=== PATIENT | female | born 1985 | race Caucasian/White ===

== ENCOUNTER 2020-08-31 14:16 | Emergency (ER) | payer OTHER, SELFPAY ==
--- NOTE | 2020-08-31 | ECG_ITS ---
Test Reason : CHEST PAIN Blood Pressure : / mmHG Vent. Rate : 091 BPM Atrial Rate : 091 BPM P-R Int : 122 ms QRS Dur : 070 ms QT Int : 348 ms P-R-T Axes : 051 084 022 degrees QTc Int : 428 ms Normal sinus rhythm Normal ECG No previous ECGs available Referred By: Generic ED Physician Electronically Signed By:Rangel Lowe
--- NOTE | ~2020-08-31 | CT_ITS ---
EXAMINATION: CT ANGIOGRAM OF THE CHEST WITH AND WITHOUT CONTRAST (CT PULMONARY ANGIOGRAM FOR PE) CLINICAL INFORMATION: Reason for Exam Cp/ SOB/ elevated ddimer COMPARISON: None TECHNIQUE: Prior to contrast administration, noncontrast localization images were obtained. Subsequently, multidetector volumetric imaging was performed from the thoracic inlet to below the diaphragms following the administration of 59 mL Omnipaque 350 intravenous contrast. No contrast reaction reported Sagittal, coronal, and MIP oblique sagittal reformatted images were obtained on the CT workstation, uploaded to PACS, and reviewed. This CT examination was performed using dose optimization techniques as appropriate, variously including the following: *Automated exposure control *Adjustment of mA and/or kV according to patient size (this includes techniques or standardized protocols for targeted exams where dose is matched to indication/reason for exam; i.e. extremities or head) *Use of iterative reconstruction technique Total exam dose-length product 227 mGy-cm FINDINGS: QUALITY OF STUDY/CONTRAST BOLUS: Satisfactory. PULMONARY ARTERIES: No central or segmental pulmonary emboli. THORACIC AORTA: No aneurysm or dissection. LUNG: No focal consolidation, nodules or masses. PLEURA: No pleural effusion or pneumothorax. MEDIASTINUM: Normal heart size. No pericardial effusion. No hilar or mediastinal lymphadenopathy. No evidence of septal bowing or right heart strain. CHEST WALL/AXILLA: No axillary or internal mammary lymphadenopathy. OSSEOUS STRUCTURES: No acute or suspicious osseous abnormality. UPPER ABDOMEN: Unremarkable. No reflux of contrast into the hepatic veins to suggest elevated right heart pressures. CT/CT angio chest PE protocol IMPRESSION: No evidence of pulmonary emboli VTE: negative
--- NOTE | ~2020-08-31 | XR_ITS ---
EXAMINATION: XR CHEST CLINICAL INFORMATION: Cough, chest pain COMPARISON: None TECHNIQUE: Frontal view of the chest was obtained. FINDINGS: There is no pneumothorax, pleural reaction, airspace opacity, or effusion. The costophrenic sulci are clear. The heart is normal in size. The hilar and mediastinal contours and visualized bony structures are unremarkable. XR/XR chest 1V IMPRESSION: Unremarkable examination.
[2020-08-31 14:33] VITALS: BP 111/68; PULSE 96; RESP 18; TEMP 36.8; O2SAT 99; BMI 28.3
[2020-08-31 14:59] LABS: UPreg QC Valid YES
[2020-08-31 15:01] LABS: Urine Pregnancy NEGATIVE (NEGATIVE)
--- NOTE | 2020-08-31 17:16 | ED.CHESTPAIN ---
HPI - Chest Pain General Chief Complaint: Chest Pain Stated Complaint: chest pain sob Time Seen by Provider: 08/31/20 17:16 Source: patient Mode of arrival: ambulatory Limitations: no limitations History of Present Illness HPI narrative: In review this is a 34-year-old female who denies any significant past medical or surgical history who presents today with complaint of 3 days of cough that has been progressively getting worse with some runny nose and nasal congestion that progressed to having chest pain that is associated with cough and also tightness in the chest. States that she does not have any recent travel or sick contact. There is no headache or neck pain. She has received both of her COVID vaccinations. There is no associated abdominal pain, nausea, vomiting or diarrhea. MD complaint: chest pain Onset (ago): day(s) Timing of current episode: episodic Onset: other (With cough) Pain radiation: none Severity: moderate Quality: aching Relieving factors: rest Associated symptoms: cough Treatment prior to arrival: none Related Data Previous Rx's Medication Instructions Recorded hqnznoliskler-YF-fayifakgkia 15 ml PO Q8H PRN 3 Days #118 ml 08/31/20 [Robitussin Cough and Cold CF] Allergies Allergy/AdvReac Type Severity Reaction Status Date / Time No Known Allergies Allergy Verified 08/31/20 14:31 Review of Systems Review of Systems: Constitutional: No Weight loss, No Fever, No Chills, No Night Sweats, No Fatigue, No Malaise ENT/Mouth: No Hearing loss, No Ear Pain, + Nasal Congestion, + Sinus Pain, No Hoarseness, No sore throat, + Rhinorrhea, No Swallowing Difficulty Eyes: No Eye Pain, No Swelling, No Redness, No Foreign Body, No Discharge, No Vision Changes Cardiovascular: + Chest Pain, +SOB with cough, No Dyspnea on Exertion, No Orthopnea, No Edema, No Palpitations Respiratory: No Cough, No Sputum, No Wheezing, No Smoke Exposure, No Dyspnea Gastrointestinal: No Nausea, No Vomiting, No Diarrhea, No Constipation, No abdominal Pain, No Hematochezia, No Melena Genitourinary: no irregular bleeding, No Dysuria, No Urinary Frequency, No Hematuria, No Urinary Incontinence, No Urgency, No Flank Pain, No Urinary Flow Changes, No Hesitancy Musculoskeletal: No joint pain, No Myalgias, No Joint Swelling Skin: No Skin Lesions, No rash Neuro: No Weakness, No Numbness, No Paresthesias, No Loss of Consciousness, No Dizziness, No Headache Psych: No Social Issues Heme/Lymph: No Bruising, No Bleeding,No Lymphadenopathy Endocrine: No Polyuria, No Polydipsia, No Temperature Intolerance Yes all other systems are reviewed and are negative [facility] Social History Social History Advance Directives: No Advance Directives Information Provided: No Physical Exam Vital Signs: Vital Signs: Last Vital Signs Temp 98.3 F 08/31/20 14:33 Pulse 105 H 08/31/20 19:24 Resp 18 08/31/20 19:24 BP 107/59 L 08/31/20 19:24 Pulse Ox 99 08/31/20 19:24 Body Mass Index 28.3 Reviewed Const: General: cooperative and healthy appearing; No acute distress or intoxicated appearing Nutritional Appearance: average body habitus Orientation/consciousness: patient oriented x3 HENMT: Head: Yes normal to inspection Ears: hearing grossly normal bilaterally General nose exam: Nasal discharge present clear Face and sinus: Yes sinuses nontender Teeth and gingiva: dentition normal Throat: Yes posterior oropharynx normal Eyes: General: appearance normal, both eyes and all related structures Visual Woods: normal visual woods by confrontation Pupils: Equal, round and reactive pupils present Neck: Neck: Yes normal visual inspection, No positive Brudzinski's sign, No positive Kernig's sign and No tender Thyroid: Thyroid normal Chest: Chest palpation & inspection: normal inspection of the chest Breast/axilla inspection: normal inspection of the breasts Resp: Effort & Inspection: normal respiratory effort Auscultation: clear to auscultation bilaterally Cardio: Jugular venous distension: no JVD Rate: tachycardic (115) GI: Inspection: Yes normal to inspection Palpation (GI): Soft to palpation Percussion: Yes normal to percussion Auscultation: normal bowel sounds : General: Yes no CVA tenderness Back/Spine/Pelvis: Back: no CVA tenderness Skin: General skin exam: no rashes or lesions noted Neuro: General: patient oriented x3 Cranial nerves: Yes Equal, round and reactive pupils present Extrem: General: Yes normal to inspection Course Reevaluation(s) Reevaluation #1: 1720 In review otherwise healthy 34-year-old female presenting with URI symptoms with associated cough and chest pain going on for past 3 days now having some shortness of breath. She is noted to have temperature of 99.3 degrees and pulse ox 100% and heart rate of 116. She reports more pain the face and there is some chest pain with cough. She had chest x-ray done on arrival that was unremarkable, EKG nondiagnostic, A.P consistent with nasal pharyngitis with associated cough and pruritus though she is tachycardic otherwise her test is negative. Will check labs, troponin and D-dimer though my suspicions are low for this. Will treat with p.o. Tylenol and fluids. Will assess and re-evaluate after labs and treatment. Reevaluation #2: Labs show slightly elevated D-dimer otherwise overall stable. Given the tachycardia likely from low-grade fever and not pulmonary embolism however due to elevated D-dimer will get CTA chest to rule out PE. She otherwise overall feels better. Reevaluation #3: COVID/flu/RSV is negative CT of the chest is negative. She will be discharged home with clear precaution return follow-up instructions. She is overall nontoxic appearing. She is out of bed ambulatory status with gait. Vital stable. She feels comfortable plan. Stable for discharge. MDM - Chest Pain Medical Records Data Attestation: I reviewed the patient's medical records. Lab Data Attestation: I reviewed the patient's lab results. Result diagrams: 08/31/20 17:36 08/31/20 17:36 Labs: Lab Results 08/31/20 08/31/20 08/31/20 Range/Units 14:46 17:36 17:36 WBC 12.1 H (4.8-10.8) X10*3/uL RBC 4.30 (4.20-5.50) X10*6/uL Hgb 11.8 L (12.0-16.0) g/dl Hct 36.0 L (37-47) % MCV 83.7 (80-98) fL MCH 27.4 (27.0-33.0) pg MCHC 32.8 (31.0-35.0) g/dl RDW 13.4 (11.0-16.0) % Plt Count 266 (160-400) X10*3/uL MPV 10.2 (9.4-12.3) fL Immature Gran % (Auto) 0.2 (0.0-0.4) % Neut % (Auto) 75.7 H (45-73) % Lymph % (Auto) 15.5 L (20-40) % [place] % (Auto) 6.9 (2-11) % Eos % (Auto) 1.5 (0-4) % Baso % (Auto) 0.2 (0-2) % Lymph # (Auto) 1.9 (1.2-4.9) X10*3/uL [place] # (Auto) 0.8 (0.1-1.2) X10*3/uL Eos # (Auto) 0.2 (0.0-0.4) X10*3/uL Baso # (Auto) 0.0 (0.0-0.2) X10*3/uL Abs Immat Gran (auto) 0.03 (0.00-0.03) X10*3/uL Absolute Neuts (auto) 9.2 H (2.0-8.3) X10*3/uL Absolute Nucleated RBC 0.000 (0.0-0.012) X10*3/uL Nucleated RBC % (auto) 0.0 (0.0-0.2) /100WBC APTT 33.4 (24.1-38.0) SEC D-Dimer 326 NG/ML Sodium (135-145) mmol/L Potassium (3.3-5.1) mmol/L Chloride (96-108) mmol/L Carbon Dioxide (22-29) mmol/L Anion Gap (12-20) BUN (9-16) mg/dL Creatinine (0.5-1.4) mg/dL Estim Creat Clear Calc Estimated GFR Random Glucose (60-115) mg/dL Calcium (8.4-10.2) mg/dL Total Bilirubin (0.0-1.0) mg/dL AST (5-31) U/L ALT (0-31) U/L Alkaline Phosphatase (39-117) U/L Troponin I High Sens (<3.5-17.0) ng/L Total Protein (6.5-8.0) g/dL Albumin (3.5-5.0) g/dL Urine Color Urine Appearance Urine pH (5.0-8.0) Ur Specific [place] (1.005-1.025) Urine Protein (NEG-TRACE) MG/DL Urine Glucose (UA) (NEG) MG/DL Urine Ketones (NEG) MG/DL Urine Blood (NEG) Urine Nitrite (NEG) Ur Leukocyte Esterase (NEG) Urine RBC (0) /HPF Urine WBC (0-4) /HPF Ur Squamous Epith Cells /LPF Urine Bacteria /LPF Urine Test NEGATIVE (NEGATIVE) Coronavirus (PCR) (Negative) Influenza Type A (PCR) (Negative) Influenza Type B (PCR) (Negative) RSV RNA Qual (PCR) (Negative) 08/31/20 08/31/20 08/31/20 Range/Units 17:36 17:36 19:10 WBC (4.8-10.8) X10*3/uL RBC (4.20-5.50) X10*6/uL Hgb (12.0-16.0) g/dl Hct (37-47) % MCV (80-98) fL MCH (27.0-33.0) pg MCHC (31.0-35.0) g/dl RDW (11.0-16.0) % Plt Count (160-400) X10*3/uL MPV (9.4-12.3) fL Immature Gran % (Auto) (0.0-0.4) % Neut % (Auto) (45-73) % Lymph % (Auto) (20-40) % [place] % (Auto) (2-11) % Eos % (Auto) (0-4) % Baso % (Auto) (0-2) % Lymph # (Auto) (1.2-4.9) X10*3/uL [place] # (Auto) (0.1-1.2) X10*3/uL Eos # (Auto) (0.0-0.4) X10*3/uL Baso # (Auto) (0.0-0.2) X10*3/uL Abs Immat Gran (auto) (0.00-0.03) X10*3/uL Absolute Neuts (auto) (2.0-8.3) X10*3/uL Absolute Nucleated RBC (0.0-0.012) X10*3/uL Nucleated RBC % (auto) (0.0-0.2) /100WBC APTT (24.1-38.0) SEC D-Dimer NG/ML Sodium 139 (135-145) mmol/L Potassium 4.2 (3.3-5.1) mmol/L Chloride 106 (96-108) mmol/L Carbon Dioxide 23 (22-29) mmol/L Anion Gap 14 (12-20) BUN 9 (9-16) mg/dL Creatinine 0.78 (0.5-1.4) mg/dL Estim Creat Clear Calc 91.5 Estimated GFR > 60 Random Glucose 110 (60-115) mg/dL Calcium 8.8 (8.4-10.2) mg/dL Total Bilirubin 0.5 (0.0-1.0) mg/dL AST 13 (5-31) U/L ALT 10 (0-31) U/L Alkaline Phosphatase 72 (39-117) U/L Troponin I High Sens < 3.5 (<3.5-17.0) ng/L Total Protein 7.2 (6.5-8.0) g/dL Albumin 4.2 (3.5-5.0) g/dL Urine Color Urine Appearance Urine pH (5.0-8.0) Ur Specific [place] (1.005-1.025) Urine Protein (NEG-TRACE) MG/DL Urine Glucose (UA) (NEG) MG/DL Urine Ketones (NEG) MG/DL Urine Blood (NEG) Urine Nitrite (NEG) Ur Leukocyte Esterase (NEG) Urine RBC (0) /HPF Urine WBC (0-4) /HPF Ur Squamous Epith Cells /LPF Urine Bacteria /LPF Urine Test (NEGATIVE) Coronavirus (PCR) NEGATIVE (Negative) Influenza Type A (PCR) NEGATIVE (Negative) Influenza Type B (PCR) NEGATIVE (Negative) RSV RNA Qual (PCR) NEGATIVE (Negative) 08/31/20 Range/Units 19:23 WBC (4.8-10.8) X10*3/uL RBC (4.20-5.50) X10*6/uL Hgb (12.0-16.0) g/dl Hct (37-47) % MCV (80-98) fL MCH (27.0-33.0) pg MCHC (31.0-35.0) g/dl RDW (11.0-16.0) % Plt Count (160-400) X10*3/uL MPV (9.4-12.3) fL Immature Gran % (Auto) (0.0-0.4) % Neut % (Auto) (45-73) % Lymph % (Auto) (20-40) % [place] % (Auto) (2-11) % Eos % (Auto) (0-4) % Baso % (Auto) (0-2) % Lymph # (Auto) (1.2-4.9) X10*3/uL [place] # (Auto) (0.1-1.2) X10*3/uL Eos # (Auto) (0.0-0.4) X10*3/uL Baso # (Auto) (0.0-0.2) X10*3/uL Abs Immat Gran (auto) (0.00-0.03) X10*3/uL Absolute Neuts (auto) (2.0-8.3) X10*3/uL Absolute Nucleated RBC (0.0-0.012) X10*3/uL Nucleated RBC % (auto) (0.0-0.2) /100WBC APTT (24.1-38.0) SEC D-Dimer NG/ML Sodium (135-145) mmol/L Potassium (3.3-5.1) mmol/L Chloride (96-108) mmol/L Carbon Dioxide (22-29) mmol/L Anion Gap (12-20) BUN (9-16) mg/dL Creatinine (0.5-1.4) mg/dL Estim Creat Clear Calc Estimated GFR Random Glucose (60-115) mg/dL Calcium (8.4-10.2) mg/dL Total Bilirubin (0.0-1.0) mg/dL AST (5-31) U/L ALT (0-31) U/L Alkaline Phosphatase (39-117) U/L Troponin I High Sens (<3.5-17.0) ng/L Total Protein (6.5-8.0) g/dL Albumin (3.5-5.0) g/dL Urine Color YELLOW Urine Appearance CLEAR Urine pH 6.0 (5.0-8.0) Ur Specific [place] <= 1.005 (1.005-1.025) Urine Protein NEG (NEG-TRACE) MG/DL Urine Glucose (UA) NEG (NEG) MG/DL Urine Ketones NEG (NEG) MG/DL Urine Blood 1+ H (NEG) Urine Nitrite NEG (NEG) Ur Leukocyte Esterase NEG (NEG) Urine RBC 0-2 (0) /HPF Urine WBC 0 (0-4) /HPF Ur Squamous Epith Cells 1+ /LPF Urine Bacteria TRACE /LPF Urine Test (NEGATIVE) Coronavirus (PCR) (Negative) Influenza Type A (PCR) (Negative) Influenza Type B (PCR) (Negative) RSV RNA Qual (PCR) (Negative) Imaging Data Chest x-ray: Radiologist's impression: [address] [id number] ReportSigned Patient: Laurita JoynerMR#: [id number]: [id number]:[id number]/Sex: 34 / FADM Date: 08/31/20Loc: HOJaswantEDAttending Dr: Ordering Physician: ANA BENAVIDES Date of Service: 08/31/20 Procedure(s): XR chest 1V Accession Number(s): [id number] cc: ANA BENAVIDES~ EXAMINATION: XR CHEST CLINICAL INFORMATION: Cough, chest pain COMPARISON: None TECHNIQUE: Frontal view of the chest was obtained. FINDINGS: There is no pneumothorax, pleural reaction, airspace opacity, or effusion. The costophrenic sulci are clear. The heart is normal in size. The hilar and mediastinal contours and visualized bony structures are unremarkable. XR/XR chest 1V IMPRESSION: Unremarkable examination. Dictated By:MADYSON RODRIGUEZ MDSigned By:<Electronically signed by MADYSON RODRIGUEZ MD in OV>08/31/20 1540 DD/ 1522TD/TT: Building Custodial Supervisor: ZAYAS Chest CT PE: Radiologist's impression: [address] [id number] Scan ReportSigned Patient: Laurita JoynerMR#: [id number]: [id number]:[id number]/Sex: 34 / FADM Date: 08/31/20Loc: HO.EDAttending Dr: Ordering Physician: Maico Haider NP Date of Service: 08/31/20 Procedure(s): CT angio chest PE protocol Accession Number(s): [id number] cc: Maico Haider GREEN WARE CASTER~ EXAMINATION: CT ANGIOGRAM OF THE CHEST WITH AND WITHOUT CONTRAST (CT PULMONARY ANGIOGRAM FOR PE) CLINICAL INFORMATION: Reason for Exam Cp/ SOB/ elevated ddimer COMPARISON: None TECHNIQUE: Prior to contrast administration, noncontrast localization images were obtained. Subsequently, multidetector volumetric imaging was performed from the thoracic inlet to below the diaphragms following the administration of 59 mL Omnipaque 350 intravenous contrast. No contrast reaction reported Sagittal, coronal, and MIP oblique sagittal reformatted images were obtained on the CT workstation, uploaded to PACS, and reviewed. This CT examination was performed using dose optimization techniques as appropriate, variously including the following: *Automated exposure control *Adjustment of mA and/or kV according to patient size (this includes techniques or standardized protocols for targeted exams where dose is matched to indication/reason for exam; i.e. extremities or head) *Use of iterative reconstruction technique Total exam dose-length product 227 mGy-cm FINDINGS: QUALITY OF STUDY/CONTRAST BOLUS: Satisfactory. PULMONARY ARTERIES: No central or segmental pulmonary emboli. THORACIC AORTA: No aneurysm or dissection. LUNG: No focal consolidation, nodules or masses. PLEURA: No pleural effusion or pneumothorax. MEDIASTINUM: Normal heart size. No pericardial effusion. No hilar or mediastinal lymphadenopathy. No evidence of septal bowing or right heart strain. CHEST WALL/AXILLA: No axillary or internal mammary lymphadenopathy. OSSEOUS STRUCTURES: No acute or suspicious osseous abnormality. UPPER ABDOMEN: Unremarkable. No reflux of contrast into the hepatic veins to suggest elevated right heart pressures. CT/CT angio chest PE protocol IMPRESSION: No evidence of pulmonary emboli VTE: negative Dictated By:MADYSON HOFFMANN MDSigned By:<Electronically signed by MADYSON HOFFMANN MD in OV>08/31/202011 DD/ 1855TD/TT: Building Custodial Supervisor: DARON ECG Data ECG #1: Interpretation: Vent. Rate : 091 BPM Atrial Rate : 091 BPM P-R Int : 122 ms QRS Dur : 070 ms QT Int : 348 ms P-R-T Axes : 051 084 022 degrees QTc Int : 428 ms Normal sinus rhythm Normal ECG No previous ECGs available Discharge Plan Discharge Clinical Impression: Costochondritis, Acute viral syndrome Patient Disposition: Home, Self-Care Instructions: Costochondritis (ED), Rhinosinusitis (ED), Viral Syndrome (ED) Additional Instructions: Supportive care Push fluids Take medication prescribed Your blood work for her heart as well as her EKG were all within normal limits Blood test for your kidneys and liver were within normal limits X-ray of the chest did not show any evidence pneumonia CT scan of your chest did not show any evidence of blood clot Her COVID test was negative Your symptoms are consistent with common cold- please practice social distancing and self-isolation. Return if any concerns or worsening symptoms Thank you Prescriptions: New Robitussin Cough and Cold CF 2.5-5-50 mg/5 mL liquid 15 ml PO Q8H PRN (Reason: cough) 3 Days Qty: 118 RF: 0 Referrals: Physician,None [Primary Care Provider] - 3 days
[2020-08-31] MEDS: 0.9 % Sodium Chloride 1,000 ML 999 ML IV (17:39)
[2020-08-31] MEDS: Acetaminophen 325 MG TABLET 650 MG PO (17:40)
[2020-08-31 17:48] LABS: MANUAL DIFF FLAG NO
[2020-08-31 17:50] LABS: Basophils Percent Auto 0.2 % (0-2); Eosinophils Absolute Auto 0.2 X10*3/uL (0.0-0.4); Eosinophils Percent Auto 1.5 % (0-4); Hemoglobin 11.8 g/dl (12.0-16.0); Imm Gran Abs Auto 0.03 X10*3/uL (0.00-0.03); Imm Gran Pct Auto 0.2 % (0.0-0.4); Lymphocytes Absolute Auto 1.9 X10*3/uL (1.2-4.9); Lymphocytes Percent Auto 15.5 % (20-40); Mean Corpuscular HGB Conc 32.8 g/dl (31.0-35.0); Mean Corpuscular Hemoglobin 27.4 pg (27.0-33.0); Mean Corpuscular Volume 83.7 fL (80-98); Mean Platelet Volume 10.2 fL (9.4-12.3); Monocytes Absolute Auto 0.8 X10*3/uL (0.1-1.2); Monocytes Percent Auto 6.9 % (2-11); Neutrophils Absolute Auto 9.2 X10*3/uL (2.0-8.3); Neutrophils Percent Auto 75.7 % (45-73); Platelet Count 266 X10*3/uL (160-400); Red Cell Distribution Width 13.4 % (11.0-16.0); White Blood Count 12.1 X10*3/uL (4.8-10.8)
[2020-08-31 17:58] LABS: D Dimer 326 NG/ML; Partial Thromboplastin Time 33.4 SEC (24.1-38.0)
[2020-08-31 18:18] LABS: Alanine Aminotransferase 10 U/L (0-31); Albumin Level 4.2 g/dL (3.5-5.0); Alkaline Phosphatase 72 U/L (39-117); Anion Gap 14 (12-20); Aspartate Amino Transferase 13 U/L (5-31); Bilirubin Total 0.5 mg/dL (0.0-1.0); Blood Urea Nitrogen 9 mg/dL (9-16); Calcium 8.8 mg/dL (8.4-10.2); Carbon Dioxide 23 mmol/L (22-29); Chloride 106 mmol/L (96-108); Creatinine Clr Calc Pharmacy 91.5; Estimated Glomerular Filt Rate > 60; Glucose Random 110 mg/dL (60-115); Potassium 4.2 mmol/L (3.3-5.1); Sodium 139 mmol/L (135-145); Total Protein 7.2 g/dL (6.5-8.0)
[2020-08-31 18:22] LABS: Troponin-I High Sensitivity < 3.5 ng/L (<3.5-17.0)
[2020-08-31 19:24] VITALS: BP 107/59; PULSE 105; RESP 18; O2SAT 99
[2020-08-31] MEDS: iohexoL 350 MG/ML 100 ML INFUS..BTL IV (19:36)
[2020-08-31 19:45] LABS: Appearance Urine CLEAR; Color Urine YELLOW; Glucose Urine UA NEG (NEG); Leukocyte Esterase Urine NEG (NEG); Nitrite Urine NEG (NEG); Specific Gravity - Urine <= 1.005 (1.005-1.025); Urine Blood 1+ (NEG); Urine Ketones NEG (NEG); Urine Protein NEG (NEG-TRACE)
[2020-08-31 19:51] LABS: Bacteria Urine TRACE /LPF; RBC Urine 0-2 /HPF (0); Squamous Epithelial Cell Urine 1+ /LPF; WBC Urine 0 /HPF (0-4)
[2020-08-31 19:54] LABS: Influenza A PCR NEGATIVE (Negative); Influenza B PCR NEGATIVE (Negative); Resp Syncy Virus RNA Qual PCR NEGATIVE (Negative); SARS COV2 PCR INHOUSE NEGATIVE (Negative)
== END 2020-08-31 20:50 | disposition home or self-care (01) ==
PROVIDERS: Nurse Practitioner Primary Care; Physician Assistant; Emergency Provider Emergency Medicine
DX: B34.9 Viral infection, unspecified (principal); M94.0 Chondrocostal junction syndrome [Tietze]; Z20.822 Contact with and (suspected) exposure to COVID-19
CPT/HCPCS: 0241U; 36415; 71045; 71275; 80053; 81001; 81025; 84484; 85025; 85379; 85730; 93005; 96360; 99285; Q9967